=== PATIENT | male | born 1965 | race African-American/Black ===

== ENCOUNTER 2018-12-05 16:34 | Emergency (ER) | payer MEDICAID ==
--- NOTE | 2018-12-05 18:22 | ULT ---
LEFT LOWER EXTREMITY VENOUS DOPPLER ULTRASOUND: 12/05/18 COMPARISON: None. HISTORY: Left lower extremity swelling. TECHNIQUE: Multiplanar ames scale sonographic imaging of the venous structures of the left lower extremity obtai cristina with color flow and spectral analysis. FINDINGS: Mildly enlarged left inguinal lymph nodes are noted measuring 1.5 cm short axis dimension. Left commo n femoral vein, greater saphenous vein, profunda femoral vein, femoral vein, and popliteal vein appea r patent. The left posterior tibial vein is only partially compressible and demonstrates internal thrombus. IMPRESSION: No evidence for DVT. However, there is superficial venous clot within the left posterior tibial vein. Follow-up imaging thus may be beneficial to exclude future propagation to the deep venous system. POS: [facility]
== END 2018-12-05 22:23 | disposition left against medical advice (07) ==
LOC: ERS 16:34
DX: Z53.21 Procedure and treatment not carried out due to patient leaving prior to being seen by health care provider (principal)